=== PATIENT | male | born 1950 | race Caucasian/White ===

== ENCOUNTER 2024-02-03 08:37 | Outpatient (CLI) | payer MEDICARE, BC, SELFPAY | END 2024-02-03 08:38 | disposition home or self-care (01) | PROVIDERS: PCP Family Medicine; Visit Provider Family Medicine | DX: R97.20 Elevated prostate specific antigen [PSA] (principal); E11.9 Type 2 diabetes mellitus without complications; E78.2 Mixed hyperlipidemia | CPT/HCPCS: 84153 ==

== ENCOUNTER 2024-07-27 10:26 | Outpatient (CLI) | payer MEDICARE, BC, SELFPAY ==
[2024-07-27 14:02] LABS: Appearance Urine Clear (Clear); Bilirubin Urine Negative (Negative); Blood Urine Negative (Negative); Color Urine Yellow (Yellow); Glucose Urine Trace (Negative); Ketones Urine Negative (Negative); Leukocyte Esterase Urine Negative (Negative); Nitrite Urine Negative (Negative); Protein Urine Negative (Negative); Urobilinogen Urine 0.2 (0.2-1.0); pH Urine 5.5 (5.0-8.5)
== END 2024-07-27 10:27 | disposition home or self-care (01) ==
LOC: NPINS 10:30
PROVIDERS: PCP Family Medicine; Visit Provider Urology
DX: N40.1 Benign prostatic hyperplasia with lower urinary tract symptoms (principal)
CPT/HCPCS: 81003; 87086

== ENCOUNTER 2024-09-28 08:15 | Outpatient (CLI) | payer MEDICARE, BC, SELFPAY | END 2024-09-28 08:16 | disposition home or self-care (01) | LOC: FBOREF 08:15 | PROVIDERS: PCP Family Medicine; Visit Provider Family Medicine | DX: E11.9 Type 2 diabetes mellitus without complications (principal); E78.2 Mixed hyperlipidemia | CPT/HCPCS: 80061 ==

== ENCOUNTER 2025-03-22 08:21 | Outpatient (CLI) | payer MEDICARE, BC, SELFPAY | END 2025-03-22 08:22 | disposition home or self-care (01) | LOC: FBOREF 08:22 | PROVIDERS: PCP Family Medicine; Visit Provider Family Medicine | DX: R97.20 Elevated prostate specific antigen [PSA] (principal) | CPT/HCPCS: 84153 ==